=== PATIENT | female | born 1955 | race Caucasian/White ===

== ENCOUNTER 2018-06-26 11:01 | Emergency (ER) | payer OTHER ==
[~2018-06-26] VITALS: Ht 142.2 cm; Wt 60.8 kg
[2018-06-26] MEDS ORDERED: MAXZIDE 37.5 M1 EACH (12:20)
[2018-06-26] MEDS ORDERED: NORVASC2.5 M1 (12:20)
[2018-06-26] MEDS ORDERED: ENALAPRIL MALE2.5 MG (12:20)
[2018-06-26] MEDS ORDERED: LOSARTAN POTAS100 MG (12:21)
[2018-06-26] MEDS ORDERED: CHILDREN'S ASPI81 MG (12:21)
[2018-06-26] MEDS ORDERED: FOXAMAX (12:22)
== END 2018-06-26 22:51 | disposition home or self-care (01) ==
LOC: ER 11:01
DX: J45.901 Unspecified asthma with (acute) exacerbation (principal); J11.1 Influenza due to unidentified influenza virus with other respiratory manifestations